=== PATIENT | female | born 1970 | race Hispanic/Latino ===

== ENCOUNTER 2021-05-24 23:30 | Inpatient (IN) | payer BC ==
[~2021-05-24 23:30] MED LIST: Iopamidol-370 76% 500 ML 1 ML ONE
[2021-05-25] MEDS ORDERED: Ondansetron PF 4 MG/2 ML Vial IVP PRN (02:34)
[2021-05-25] MEDS ORDERED: Ondansetron ODT 4 MG TAB PO PRN (02:34)
[2021-05-25] MEDS ORDERED: Acetaminophen 325 MG TAB PO PRN (02:41)
[2021-05-25] MEDS ORDERED: Dextrose 5% in Water 1,000 ML IV PRN (02:45)
[2021-05-25] MEDS ORDERED: Dextrose 50% Abboject 50 ML SYRINGE SLOW IVP PRN (02:45)
[2021-05-25] MEDS ORDERED: REMDESIVIR 200 MG in Sodium Chloride 0.9% 250 ML 210 ML IV SCH (03:00)
[2021-05-25] MEDS ORDERED: Lactated Ringer's 1,000 ML IV SCH (04:00)
[2021-05-25 04:05] LABS: #Lymphocytes 0.8 thou/uL (1.20-3.40); #Monocytes 0.3 thou/uL (0.11-0.59); #Neutrophils 7.1 thou/uL (1.40-6.50); %Eosinophils 0.1 % (0.0-10.0); %Lymphocytes 9.5 % (21.0-51.0); %Monocytes 3.4 % (0.0-10.0); Hemoglobin 11.2 g/dL (12.0-16.0); Mean Corpuscular HGB CONC 34.1 g/dL (32.0-36.0); Mean Corpuscular Hemoglobin 31.4 pg (27.0-31.0); Mean Corpuscular Volume 91.9 fL (78.0-98.0); Mean Platelet Volume 6.9 fL (7.4-10.4); Platelet Count 299 thou/uL (130-400); RBC Distribution Width 11.3 % (11.5-14.5); Red Blood Cell (RBC) Count 3.56 mill/uL (4.20-5.40); White Blood Cell (WBC) Count 8.2 thou/uL (4.8-10.8)
[2021-05-25 04:36] LABS: ALT (SGPT) 16 U/L (8-55); AST (SGOT) 28 U/L (5-34); Albumin 3.5 g/dL (3.5-5.0); Alkaline Phosphatase 51 U/L (40-110); Anion Gap 17 mmol/L (10-20); BUN (Urea Nitrogen) 27 mg/dL (9.8-20.1); Bilirubin, Total 0.4 mg/dL (0.2-1.2); Calc. Creatinine Clearance 66 mL/min (70-130); Calcium 8.2 mg/dL (7.8-10.44); Carbon Dioxide 20 mmol/L (22-29); Chloride 104 mmol/L (98-107); Globulin 3.7 g/dL (2.4-3.5); Glucose 267 mg/dL (70-105); Potassium 4.8 mmol/L (3.5-5.1); Protein, Total 7.2 g/dL (6.0-8.3); Sodium 136 mmol/L (136-145)
[2021-05-25] MEDS: Lactated Ringer's 1,000 ML IV SCH ×2 (08:55→21:37)
[2021-05-25] MEDS ORDERED: Dexamethasone 4 MG TAB ONE (08:56)
[2021-05-25] MEDS ORDERED: Benzonatate 100 MG CAP ONE ×2 (08:56→15:12)
[2021-05-25] MEDS ORDERED: Enoxaparin Sodium 40 MG/0.4 ML SYRINGE ONE (08:56)
[2021-05-25] MEDS: Benzonatate 100 MG CAP PO SCH ×3 (08:57→21:07)
[2021-05-25] MEDS: Enoxaparin Sodium 40 MG/0.4 ML SYRINGE SC SCH ×2 (08:57→21:07)
[2021-05-25] MEDS ORDERED: Dexamethasone 1 MG TAB PO SCH (09:00)
[2021-05-25] MEDS: HumaLOG 300 UNITS/3 ML VIAL SC PRN ×3 (09:08→18:48)
[2021-05-25] MEDS ORDERED: Insulin Regular 300 UNITS/3 ML VIAL ONE (09:11)
[2021-05-25] MEDS ORDERED: Calcium Carbonate 500 MG ChewTAB PO PRN (12:35)
[2021-05-25] MEDS ORDERED: Famotidine 20 MG TAB PO SCH (12:45)
[2021-05-25] MEDS ORDERED: Calcium Carbonate 500 MG ChewTAB ONE (12:55)
[2021-05-25] MEDS ORDERED: Famotidine 20 MG TAB ONE (12:55)
[2021-05-25] MEDS: Atorvastatin Calcium 40 MG TAB PO SCH (21:07)
[2021-05-25] MEDS: Gabapentin 300 MG CAP PO SCH (21:07)
[2021-05-25] MEDS: Famotidine 20 MG TAB PO SCH (21:08)
[2021-05-25 23:18] LABS: Creatinine, Urine 64.42 mg/dL (47-110)
[2021-05-26] MEDS ORDERED: REMDESIVIR 100 MG in Sodium Chloride 0.9% 250 ML 230 ML IV SCH (03:00)
[2021-05-26 03:58] LABS: #Lymphocytes 1.3 thou/uL (1.20-3.40); #Monocytes 0.9 thou/uL (0.11-0.59); #Neutrophils 9.2 thou/uL (1.40-6.50); %Basophils 0.1 % (0.0-1.0); %Eosinophils 0.2 % (0.0-10.0); %Lymphocytes 11.2 % (21.0-51.0); %Monocytes 7.8 % (0.0-10.0); %Neutrophils 80.8 % (42.0-75.0); Hemoglobin 11.2 g/dL (12.0-16.0); Mean Corpuscular HGB CONC 33.9 g/dL (32.0-36.0); Mean Corpuscular Hemoglobin 31.2 pg (27.0-31.0); Mean Platelet Volume 7.1 fL (7.4-10.4); Platelet Count 413 thou/uL (130-400); RBC Distribution Width 11.1 % (11.5-14.5); Red Blood Cell (RBC) Count 3.59 mill/uL (4.20-5.40); White Blood Cell (WBC) Count 11.4 thou/uL (4.8-10.8)
[2021-05-26 04:20] LABS: ALT (SGPT) 14 U/L (8-55); AST (SGOT) 21 U/L (5-34); Albumin 3.5 g/dL (3.5-5.0); Alkaline Phosphatase 52 U/L (40-110); Anion Gap 16 mmol/L (10-20); BUN (Urea Nitrogen) 28 mg/dL (9.8-20.1); Bilirubin, Total 0.5 mg/dL (0.2-1.2); Calc. Creatinine Clearance 93 mL/min (70-130); Calcium 8.6 mg/dL (7.8-10.44); Carbon Dioxide 21 mmol/L (22-29); Chloride 104 mmol/L (98-107); Globulin 3.7 g/dL (2.4-3.5); Glucose 363 mg/dL (70-105); Potassium 4.7 mmol/L (3.5-5.1); Protein, Total 7.2 g/dL (6.0-8.3); Sodium 136 mmol/L (136-145)
[2021-05-26] MEDS: Benzonatate 100 MG CAP PO SCH ×3 (05:57→20:44)
[2021-05-26] MEDS: HumaLOG 300 UNITS/3 ML VIAL SC PRN ×4 (05:58→21:00)
[2021-05-26] MEDS ORDERED: Lantus 1000 UNITS/10 ML VIAL SC SCH (09:00)
[2021-05-26] MEDS: Gabapentin 300 MG CAP PO SCH ×3 (09:11→20:45)
[2021-05-26] MEDS: Famotidine 20 MG TAB PO SCH ×2 (09:11→20:45)
[2021-05-26] MEDS: Enoxaparin Sodium 40 MG/0.4 ML SYRINGE SC SCH ×2 (09:11→20:42)
[2021-05-26] MEDS: Empagliflozin 25 MG TAB PO SCH (09:12)
[2021-05-26] MEDS: Zinc Sulfate 220 MG CAP PO SCH (09:13)
[2021-05-26] MEDS: Ascorbic Acid 500 mg Chewable Tablet PO SCH ×2 (09:14→20:44)
[2021-05-26] MEDS: Dexamethasone 10 MG/ML VIAL SLOW IVP SCH ×2 (09:24→20:37)
[2021-05-26] MEDS: Ivermectin 3 MG TAB PO SCH (09:24)
[2021-05-26] MEDS: Lactated Ringer's 1,000 ML IV SCH (11:54)
[2021-05-26] MEDS: Cholecalciferol 1,000 UNITS (25 MCG) TAB PO SCH (20:44)
[2021-05-26] MEDS: Atorvastatin Calcium 40 MG TAB PO SCH (20:44)
[2021-05-27 03:42] LABS: #Basophils 0.1 thou/uL (0.0-0.2); #Lymphocytes 1.2 thou/uL (1.20-3.40); #Monocytes 0.7 thou/uL (0.11-0.59); #Neutrophils 10.3 thou/uL (1.40-6.50); %Basophils 0.9 % (0.0-1.0); %Eosinophils 0.3 % (0.0-10.0); %Lymphocytes 9.6 % (21.0-51.0); %Monocytes 5.7 % (0.0-10.0); %Neutrophils 83.5 % (42.0-75.0); Hemoglobin 11.5 g/dL (12.0-16.0); Mean Corpuscular HGB CONC 33.8 g/dL (32.0-36.0); Mean Corpuscular Hemoglobin 30.8 pg (27.0-31.0); Mean Corpuscular Volume 91.2 fL (78.0-98.0); Mean Platelet Volume 6.8 fL (7.4-10.4); Platelet Count 448 thou/uL (130-400); RBC Distribution Width 11.2 % (11.5-14.5); Red Blood Cell (RBC) Count 3.73 mill/uL (4.20-5.40); White Blood Cell (WBC) Count 12.3 thou/uL (4.8-10.8)
[2021-05-27 04:02] LABS: Albumin 3.3 g/dL (3.5-5.0); Anion Gap 9 mmol/L (10-20); BUN (Urea Nitrogen) 25 mg/dL (9.8-20.1); Bilirubin, Total 0.5 mg/dL (0.2-1.2); Calc. Creatinine Clearance 117 mL/min (70-130); Calcium 8.7 mg/dL (7.8-10.44); Carbon Dioxide 28 mmol/L (22-29); Chloride 103 mmol/L (98-107); Globulin 3.6 g/dL (2.4-3.5); Glucose 265 mg/dL (70-105); Potassium 4.2 mmol/L (3.5-5.1); Protein, Total 6.9 g/dL (6.0-8.3); Sodium 136 mmol/L (136-145)
[2021-05-27 04:03] LABS: ALT (SGPT) 14 U/L (8-55); AST (SGOT) 16 U/L (5-34); Alkaline Phosphatase 51 U/L (40-110)
[2021-05-27] MEDS ORDERED: Famotidine/PF 20 mg/2ml Vial ONE (08:41)
[2021-05-27] MEDS: Ivermectin 3 MG TAB PO SCH (08:45)
[2021-05-27] MEDS: Benzonatate 100 MG CAP PO SCH ×3 (08:46→21:14)
[2021-05-27] MEDS: Albuterol 200 PUFF (6.7GM INHALER) INH PRN ×2 (08:46→17:00)
[2021-05-27] MEDS: Ascorbic Acid 500 mg Chewable Tablet PO SCH ×2 (08:46→21:13)
[2021-05-27] MEDS: Zinc Sulfate 220 MG CAP PO SCH (08:46)
[2021-05-27] MEDS: Dexamethasone 10 MG/ML VIAL SLOW IVP SCH ×2 (08:47→21:12)
[2021-05-27] MEDS: Gabapentin 300 MG CAP PO SCH ×3 (08:47→21:13)
[2021-05-27] MEDS: Empagliflozin 25 MG TAB PO SCH ×2 (08:48→19:09)
[2021-05-27] MEDS: Enoxaparin Sodium 40 MG/0.4 ML SYRINGE SC SCH ×2 (08:48→21:12)
[2021-05-27] MEDS ORDERED: Lantus 1000 UNITS/10 ML VIAL SC SCH (09:00)
[2021-05-27] MEDS ORDERED: Lisinopril 10 MG TAB PO SCH ×2 (09:00→21:00)
[2021-05-27] MEDS: HumaLOG 300 UNITS/3 ML VIAL SC PRN ×2 (13:56→16:56)
[2021-05-27] MEDS ORDERED: hydrALAZINE 20 MG/ML VIAL SLOW IVP PRN (17:05)
[2021-05-27] MEDS ORDERED: HumaLOG 300 UNITS/3 ML VIAL SC SCH ×2 (21:00→23:59)
[2021-05-27] MEDS: Atorvastatin Calcium 40 MG TAB PO SCH (21:13)
[2021-05-27] MEDS: Cholecalciferol 1,000 UNITS (25 MCG) TAB PO SCH (21:14)
[2021-05-28 04:34] LABS: ALT (SGPT) 14 U/L (8-55); AST (SGOT) 13 U/L (5-34); Albumin 3.3 g/dL (3.5-5.0); Alkaline Phosphatase 54 U/L (40-110); Anion Gap 11 mmol/L (10-20); BUN (Urea Nitrogen) 23 mg/dL (9.8-20.1); Bilirubin, Total 0.6 mg/dL (0.2-1.2); Calc. Creatinine Clearance 126 mL/min (70-130); Calcium 8.9 mg/dL (7.8-10.44); Carbon Dioxide 27 mmol/L (22-29); Chloride 101 mmol/L (98-107); Globulin 3.5 g/dL (2.4-3.5); Glucose 194 mg/dL (70-105); Protein, Total 6.8 g/dL (6.0-8.3); Sodium 135 mmol/L (136-145)
[2021-05-28 04:42] LABS: Band 2 % (5-11); Hemoglobin 11.3 g/dL (12.0-16.0); Lymphocytes 12 % (21-51); MDiff Complete? YES; Mean Corpuscular HGB CONC 34.9 g/dL (32.0-36.0); Mean Corpuscular Hemoglobin 31.5 pg (27.0-31.0); Mean Corpuscular Volume 90.1 fL (78.0-98.0); Mean Platelet Volume 6.9 fL (7.4-10.4); Monocytes 5 % (0-10); Myelocyte 2 % (0-0); Neutrophil 79 % (42-75); Platelet Count 467 thou/uL (130-400); Platelet Morphology Comment Appears Increased; Red Blood Cell (RBC) Count 3.59 mill/uL (4.20-5.40); White Blood Cell (WBC) Count 12.6 thou/uL (4.8-10.8)
[2021-05-28] MEDS: HumaLOG 300 UNITS/3 ML VIAL SC PRN ×3 (05:40→20:59)
[2021-05-28] MEDS: Enoxaparin Sodium 40 MG/0.4 ML SYRINGE SC SCH ×2 (07:52→10:00)
[2021-05-28] MEDS: Zinc Sulfate 220 MG CAP PO SCH (07:53)
[2021-05-28] MEDS: Ascorbic Acid 500 mg Chewable Tablet PO SCH ×2 (07:53→20:53)
[2021-05-28] MEDS: Gabapentin 300 MG CAP PO SCH ×3 (07:53→20:54)
[2021-05-28] MEDS: Benzonatate 100 MG CAP PO SCH ×3 (07:53→20:55)
[2021-05-28] MEDS: Lantus 1000 UNITS/10 ML VIAL SC SCH (07:55)
[2021-05-28] MEDS: HumaLOG 300 UNITS/3 ML VIAL SC SCH ×3 (07:55→20:58)
[2021-05-28] MEDS: Ivermectin 3 MG TAB PO SCH (07:56)
[2021-05-28] MEDS: Dexamethasone 10 MG/ML VIAL SLOW IVP SCH ×2 (07:56→20:53)
[2021-05-28] MEDS: Cholecalciferol 1,000 UNITS (25 MCG) TAB PO SCH (20:53)
[2021-05-28] MEDS: Atorvastatin Calcium 40 MG TAB PO SCH (20:54)
[2021-05-28] MEDS: Lisinopril 20 MG TAB PO SCH (20:55)
[2021-05-28] MEDS ORDERED: HumaLOG 300 UNITS/3 ML VIAL SC SCH (21:00)
[2021-05-28] MEDS: guaiFENesin 200 MG TAB PO PRN (21:02)
[2021-05-29] MEDS: guaiFENesin 200 MG TAB PO PRN (04:04)
[2021-05-29 04:19] LABS: ALT (SGPT) 18 U/L (8-55); AST (SGOT) 20 U/L (5-34); Albumin 3.3 g/dL (3.5-5.0); Alkaline Phosphatase 50 U/L (40-110); Anion Gap 11 mmol/L (10-20); BUN (Urea Nitrogen) 23 mg/dL (9.8-20.1); Bilirubin, Total 0.6 mg/dL (0.2-1.2); CRP (Inflammatory) 1.37 mg/dL (= or < 0.5); Calc. Creatinine Clearance 127 mL/min (70-130); Carbon Dioxide 29 mmol/L (22-29); Chloride 101 mmol/L (98-107); Globulin 3.6 g/dL (2.4-3.5); Glucose 128 mg/dL (70-105); Potassium 3.9 mmol/L (3.5-5.1); Protein, Total 6.9 g/dL (6.0-8.3); Sodium 137 mmol/L (136-145)
[2021-05-29 04:20] LABS: Band 7 % (5-11); Lymphocytes 3 % (21-51); MDiff Complete? YES; Mean Corpuscular HGB CONC 33.9 g/dL (32.0-36.0); Mean Corpuscular Hemoglobin 30.6 pg (27.0-31.0); Mean Corpuscular Volume 90.2 fL (78.0-98.0); Mean Platelet Volume 6.8 fL (7.4-10.4); Monocytes 1 % (0-10); Neutrophil 89 % (42-75); Platelet Count 488 thou/uL (130-400); Platelet Morphology Comment Appears Increased; RBC Morphology Normal; Red Blood Cell (RBC) Count 3.93 mill/uL (4.20-5.40); White Blood Cell (WBC) Count 16.7 thou/uL (4.8-10.8)
[2021-05-29] MEDS: Ascorbic Acid 500 mg Chewable Tablet PO SCH ×2 (08:01→20:49)
[2021-05-29] MEDS: Gabapentin 300 MG CAP PO SCH ×3 (08:01→20:47)
[2021-05-29] MEDS: Dexamethasone 10 MG/ML VIAL SLOW IVP SCH ×2 (08:01→20:46)
[2021-05-29] MEDS: Benzonatate 100 MG CAP PO SCH ×3 (08:01→20:49)
[2021-05-29] MEDS: Zinc Sulfate 220 MG CAP PO SCH (08:01)
[2021-05-29] MEDS: Ivermectin 3 MG TAB PO SCH (08:01)
[2021-05-29] MEDS: HumaLOG 300 UNITS/3 ML VIAL SC SCH ×3 (08:02→20:52)
[2021-05-29] MEDS: Enoxaparin Sodium 40 MG/0.4 ML SYRINGE SC SCH (08:02)
[2021-05-29] MEDS: Lantus 1000 UNITS/10 ML VIAL SC SCH (08:03)
[2021-05-29 08:31] LABS: Base Excess (BEa) 0.5 mEq/L (-2.0 to +3.0); CO2 Tension 34.7 mmHg (35.0-45.0); Calcium, Ionized (arterial) 1.14 mmol/L (1.12-1.30); Carboxyhemoglobin (COHb) 0.3 gm% (0.0-3.0); Hemoglobin (Hb) 12.7 g/dL (12.0-16.0); Potassium - ABG Lab 4.02 mmol/L (3.70-5.30); pH, Arterial 7.46 (7.35-7.45)
[2021-05-29 08:35] LABS: O2 Tension (PaO2), arterial 45.7 mmHg (80.0-100.0)
[2021-05-29 08:36] LABS: ALV-art Gradient 481.325 mmHg (0-20); Puncture Site RRA
[2021-05-29] MEDS ORDERED: Lantus 1000 UNITS/10 ML VIAL SC SCH (09:00)
[2021-05-29] MEDS: HumaLOG 300 UNITS/3 ML VIAL SC PRN ×2 (11:38→17:00)
[2021-05-29] MEDS: Atorvastatin Calcium 40 MG TAB PO SCH (20:47)
[2021-05-29] MEDS: Cholecalciferol 1,000 UNITS (25 MCG) TAB PO SCH (20:48)
[2021-05-29] MEDS: Lisinopril 20 MG TAB PO SCH (20:48)
[2021-05-30 05:33] LABS: ALT (SGPT) 22 U/L (8-55); AST (SGOT) 15 U/L (5-34); Albumin 3.2 g/dL (3.5-5.0); Alkaline Phosphatase 49 U/L (40-110); Anion Gap 10 mmol/L (10-20); BUN (Urea Nitrogen) 19 mg/dL (9.8-20.1); Bilirubin, Total 0.6 mg/dL (0.2-1.2); CRP (Inflammatory) 0.92 mg/dL (= or < 0.5); Calc. Creatinine Clearance 115 mL/min (70-130); Calcium 8.8 mg/dL (7.8-10.44); Carbon Dioxide 29 mmol/L (22-29); Chloride 101 mmol/L (98-107); Globulin 3.2 g/dL (2.4-3.5); Glucose 198 mg/dL (70-105); Potassium 4.2 mmol/L (3.5-5.1); Protein, Total 6.4 g/dL (6.0-8.3); Sodium 136 mmol/L (136-145)
[2021-05-30] MEDS: HumaLOG 300 UNITS/3 ML VIAL SC PRN ×3 (05:59→17:01)
[2021-05-30 07:23] LABS: #Lymphocytes 1.4 thou/uL (1.20-3.40); #Monocytes 0.7 thou/uL (0.11-0.59); #Neutrophils 12.8 thou/uL (1.40-6.50); %Basophils 0.2 % (0.0-1.0); %Eosinophils 0.2 % (0.0-10.0); %Lymphocytes 9.5 % (21.0-51.0); %Monocytes 4.5 % (0.0-10.0); %Neutrophils 85.7 % (42.0-75.0); Hemoglobin 12.3 g/dL (12.0-16.0); Mean Corpuscular HGB CONC 33.8 g/dL (32.0-36.0); Mean Corpuscular Hemoglobin 30.9 pg (27.0-31.0); Mean Corpuscular Volume 91.3 fL (78.0-98.0); Mean Platelet Volume 6.8 fL (7.4-10.4); Platelet Count 466 thou/uL (130-400); Red Blood Cell (RBC) Count 3.98 mill/uL (4.20-5.40)
[2021-05-30] MEDS ORDERED: Lantus 1000 UNITS/10 ML VIAL SC SCH ×2 (09:00→21:00)
[2021-05-30] MEDS: Gabapentin 300 MG CAP PO SCH ×3 (09:45→21:30)
[2021-05-30] MEDS: Benzonatate 100 MG CAP PO SCH ×3 (09:45→21:30)
[2021-05-30] MEDS: Zinc Sulfate 220 MG CAP PO SCH (09:45)
[2021-05-30] MEDS: Ascorbic Acid 500 mg Chewable Tablet PO SCH ×2 (09:45→21:30)
[2021-05-30] MEDS: Enoxaparin Sodium 40 MG/0.4 ML SYRINGE SC SCH ×2 (09:46→21:30)
[2021-05-30] MEDS: Dexamethasone 10 MG/ML VIAL SLOW IVP SCH ×2 (09:46→21:30)
[2021-05-30] MEDS: HumaLOG 300 UNITS/3 ML VIAL SC SCH ×3 (09:47→21:30)
[2021-05-30] MEDS: Cholecalciferol 1,000 UNITS (25 MCG) TAB PO SCH (21:30)
[2021-05-30] MEDS: Atorvastatin Calcium 40 MG TAB PO SCH (21:30)
[2021-05-30] MEDS: Lisinopril 20 MG TAB PO SCH (21:30)
[2021-05-31 03:40] LABS: #Basophils 0.1 thou/uL (0.0-0.2); #Lymphocytes 1.2 thou/uL (1.20-3.40); #Monocytes 0.6 thou/uL (0.11-0.59); #Neutrophils 13.6 thou/uL (1.40-6.50); %Basophils 0.3 % (0.0-1.0); %Eosinophils 0.2 % (0.0-10.0); %Lymphocytes 7.7 % (21.0-51.0); %Monocytes 4.2 % (0.0-10.0); %Neutrophils 87.6 % (42.0-75.0); Hemoglobin 11.8 g/dL (12.0-16.0); Mean Corpuscular HGB CONC 34.5 g/dL (32.0-36.0); Mean Corpuscular Hemoglobin 31.2 pg (27.0-31.0); Mean Corpuscular Volume 90.4 fL (78.0-98.0); Mean Platelet Volume 7.1 fL (7.4-10.4); Platelet Count 418 thou/uL (130-400); Red Blood Cell (RBC) Count 3.77 mill/uL (4.20-5.40); White Blood Cell (WBC) Count 15.5 thou/uL (4.8-10.8)
[2021-05-31 04:01] LABS: ALT (SGPT) 27 U/L (8-55); AST (SGOT) 15 U/L (5-34); Albumin 2.9 g/dL (3.5-5.0); Alkaline Phosphatase 44 U/L (40-110); Anion Gap 9 mmol/L (10-20); BUN (Urea Nitrogen) 20 mg/dL (9.8-20.1); Bilirubin, Total 0.4 mg/dL (0.2-1.2); CRP (Inflammatory) 0.58 mg/dL (= or < 0.5); Calc. Creatinine Clearance 130 mL/min (70-130); Calcium 8.8 mg/dL (7.8-10.44); Carbon Dioxide 29 mmol/L (22-29); Chloride 101 mmol/L (98-107); Globulin 3.1 g/dL (2.4-3.5); Glucose 155 mg/dL (70-105); Sodium 135 mmol/L (136-145)
[2021-05-31] MEDS: Zinc Sulfate 220 MG CAP PO SCH (08:42)
[2021-05-31] MEDS: Benzonatate 100 MG CAP PO SCH ×3 (08:42→20:41)
[2021-05-31] MEDS: Ascorbic Acid 500 mg Chewable Tablet PO SCH ×2 (08:42→20:42)
[2021-05-31] MEDS: Enoxaparin Sodium 40 MG/0.4 ML SYRINGE SC SCH ×2 (08:42→20:38)
[2021-05-31] MEDS: Gabapentin 300 MG CAP PO SCH ×3 (08:43→20:42)
[2021-05-31] MEDS: Dexamethasone 10 MG/ML VIAL SLOW IVP SCH ×2 (08:43→20:43)
[2021-05-31] MEDS: HumaLOG 300 UNITS/3 ML VIAL SC SCH ×2 (08:43→15:37)
[2021-05-31] MEDS: Lantus 1000 UNITS/10 ML VIAL SC SCH ×2 (08:45→20:45)
[2021-05-31] MEDS: HumaLOG 300 UNITS/3 ML VIAL SC PRN ×2 (11:31→17:29)
[2021-05-31] MEDS: Lisinopril 20 MG TAB PO SCH (20:42)
[2021-05-31] MEDS: Cholecalciferol 1,000 UNITS (25 MCG) TAB PO SCH (20:42)
[2021-05-31] MEDS: Atorvastatin Calcium 40 MG TAB PO SCH (20:42)
[2021-06-01 04:08] LABS: #Lymphocytes 1.2 thou/uL (1.20-3.40); #Monocytes 0.5 thou/uL (0.11-0.59); %Eosinophils 0.3 % (0.0-10.0); %Lymphocytes 7.6 % (21.0-51.0); %Monocytes 3.4 % (0.0-10.0); %Neutrophils 88.7 % (42.0-75.0); Hemoglobin 11.3 g/dL (12.0-16.0); Mean Corpuscular HGB CONC 33.6 g/dL (32.0-36.0); Mean Corpuscular Hemoglobin 30.9 pg (27.0-31.0); Mean Corpuscular Volume 92.1 fL (78.0-98.0); Mean Platelet Volume 7.7 fL (7.4-10.4); Platelet Count 382 thou/uL (130-400); RBC Distribution Width 11.3 % (11.5-14.5); Red Blood Cell (RBC) Count 3.66 mill/uL (4.20-5.40); White Blood Cell (WBC) Count 15.8 thou/uL (4.8-10.8)
[2021-06-01 04:25] LABS: ALT (SGPT) 25 U/L (8-55); AST (SGOT) 13 U/L (5-34); Albumin 2.8 g/dL (3.5-5.0); Alkaline Phosphatase 43 U/L (40-110); Anion Gap 10 mmol/L (10-20); BUN (Urea Nitrogen) 21 mg/dL (9.8-20.1); Bilirubin, Total 0.5 mg/dL (0.2-1.2); CRP (Inflammatory) Less than 0.50 mg/dL (= or < 0.5); Calc. Creatinine Clearance 131 mL/min (70-130); Calcium 8.6 mg/dL (7.8-10.44); Carbon Dioxide 29 mmol/L (22-29); Chloride 101 mmol/L (98-107); Globulin 2.7 g/dL (2.4-3.5); Glucose 160 mg/dL (70-105); Potassium 4.1 mmol/L (3.5-5.1); Protein, Total 5.5 g/dL (6.0-8.3); Sodium 136 mmol/L (136-145)
[2021-06-01] MEDS: Ascorbic Acid 500 mg Chewable Tablet PO SCH ×2 (07:57→20:10)
[2021-06-01] MEDS: Gabapentin 300 MG CAP PO SCH ×3 (07:57→20:09)
[2021-06-01] MEDS: Dexamethasone 10 MG/ML VIAL SLOW IVP SCH ×2 (07:57→20:15)
[2021-06-01] MEDS: Benzonatate 100 MG CAP PO SCH ×3 (07:57→20:10)
[2021-06-01] MEDS: HumaLOG 300 UNITS/3 ML VIAL SC SCH ×3 (07:58→17:12)
[2021-06-01] MEDS: Enoxaparin Sodium 40 MG/0.4 ML SYRINGE SC SCH ×2 (07:59→20:08)
[2021-06-01] MEDS: Lantus 1000 UNITS/10 ML VIAL SC SCH ×2 (08:00→20:11)
[2021-06-01] MEDS: Zinc Sulfate 220 MG CAP PO SCH (08:01)
[2021-06-01] MEDS: HumaLOG 300 UNITS/3 ML VIAL SC PRN ×3 (10:55→20:36)
[2021-06-01] MEDS: Lisinopril 20 MG TAB PO SCH (20:09)
[2021-06-01] MEDS: Atorvastatin Calcium 40 MG TAB PO SCH (20:10)
[2021-06-01] MEDS: Cholecalciferol 1,000 UNITS (25 MCG) TAB PO SCH (20:10)
[2021-06-02 04:35] LABS: Band 2 % (5-11); Hemoglobin 11.4 g/dL (12.0-16.0); Hypochromia SLIGHT = 6-15 cells (100X) (0-5/hpf); Lymphocytes 13 % (21-51); MDiff Complete? YES; Mean Corpuscular HGB CONC 33.7 g/dL (32.0-36.0); Mean Corpuscular Hemoglobin 30.6 pg (27.0-31.0); Monocytes 9 % (0-10); Neutrophil 76 % (42-75); Platelet Count 378 thou/uL (130-400); Platelet Morphology Comment Appears Adequate; RBC Distribution Width 11.5 % (11.5-14.5); Red Blood Cell (RBC) Count 3.72 mill/uL (4.20-5.40)
[2021-06-02 04:42] LABS: Carbon Dioxide 27 mmol/L (22-29); Chloride 103 mmol/L (98-107); Sodium 137 mmol/L (136-145)
[2021-06-02 04:43] LABS: ALT (SGPT) 33 U/L (8-55); AST (SGOT) 17 U/L (5-34); Albumin 2.9 g/dL (3.5-5.0); Alkaline Phosphatase 42 U/L (40-110); Anion Gap 11 mmol/L (10-20); BUN (Urea Nitrogen) 20 mg/dL (9.8-20.1); Bilirubin, Total 0.5 mg/dL (0.2-1.2); CRP (Inflammatory) Less than 0.50 mg/dL (= or < 0.5); Calc. Creatinine Clearance 144 mL/min (70-130); Calcium 9.1 mg/dL (7.8-10.44); Globulin 2.8 g/dL (2.4-3.5); Glucose 67 mg/dL (70-105); Protein, Total 5.7 g/dL (6.0-8.3)
[2021-06-02] MEDS: HumaLOG 300 UNITS/3 ML VIAL SC SCH ×3 (08:44→16:30)
[2021-06-02] MEDS: Dexamethasone 10 MG/ML VIAL SLOW IVP SCH ×2 (08:45→21:51)
[2021-06-02] MEDS: Ascorbic Acid 500 mg Chewable Tablet PO SCH ×2 (08:45→21:45)
[2021-06-02] MEDS: Benzonatate 100 MG CAP PO SCH ×3 (08:45→21:45)
[2021-06-02] MEDS: Gabapentin 300 MG CAP PO SCH ×3 (08:46→21:45)
[2021-06-02] MEDS: Zinc Sulfate 220 MG CAP PO SCH (08:46)
[2021-06-02] MEDS: Enoxaparin Sodium 40 MG/0.4 ML SYRINGE SC SCH ×2 (08:46→21:43)
[2021-06-02] MEDS: HumaLOG 300 UNITS/3 ML VIAL SC PRN ×3 (11:46→21:46)
[2021-06-02] MEDS ORDERED: Lantus 1000 UNITS/10 ML VIAL SC SCH (21:00)
[2021-06-02] MEDS: Atorvastatin Calcium 40 MG TAB PO SCH (21:44)
[2021-06-02] MEDS: Lisinopril 20 MG TAB PO SCH (21:44)
[2021-06-02] MEDS: Cholecalciferol 1,000 UNITS (25 MCG) TAB PO SCH (21:44)
[2021-06-03 04:20] LABS: ALT (SGPT) 33 U/L (8-55); AST (SGOT) 14 U/L (5-34); Albumin 2.8 g/dL (3.5-5.0); Alkaline Phosphatase 42 U/L (40-110); Anion Gap 9 mmol/L (10-20); BUN (Urea Nitrogen) 19 mg/dL (9.8-20.1); Bilirubin, Total 0.5 mg/dL (0.2-1.2); Calc. Creatinine Clearance 146 mL/min (70-130); Calcium 8.9 mg/dL (7.8-10.44); Carbon Dioxide 30 mmol/L (22-29); Chloride 102 mmol/L (98-107); Globulin 2.8 g/dL (2.4-3.5); Glucose 72 mg/dL (70-105); Protein, Total 5.6 g/dL (6.0-8.3); Sodium 137 mmol/L (136-145)
[2021-06-03 04:29] LABS: Band 5 % (5-11); Lymphocytes 8 % (21-51); MDiff Complete? YES; Mean Corpuscular Hemoglobin 30.9 pg (27.0-31.0); Mean Corpuscular Volume 91.1 fL (78.0-98.0); Mean Platelet Volume 7.8 fL (7.4-10.4); Metamyelocyte 2 % (0-0); Monocytes 5 % (0-10); Myelocyte 1 % (0-0); Neutrophil 79 % (42-75); Platelet Count 395 thou/uL (130-400); Platelet Morphology Comment Appears Adequate; RBC Distribution Width 11.5 % (11.5-14.5); RBC Morphology Normal; Red Blood Cell (RBC) Count 3.56 mill/uL (4.20-5.40); White Blood Cell (WBC) Count 14.6 thou/uL (4.8-10.8)
[2021-06-03] MEDS: HumaLOG 300 UNITS/3 ML VIAL SC SCH ×3 (10:08→17:31)
[2021-06-03] MEDS: Ascorbic Acid 500 mg Chewable Tablet PO SCH ×2 (10:09→20:26)
[2021-06-03] MEDS: Benzonatate 100 MG CAP PO SCH ×3 (10:09→20:26)
[2021-06-03] MEDS: Gabapentin 300 MG CAP PO SCH ×3 (10:10→20:26)
[2021-06-03] MEDS: Dexamethasone 10 MG/ML VIAL SLOW IVP SCH ×2 (10:10→20:27)
[2021-06-03] MEDS: Enoxaparin Sodium 40 MG/0.4 ML SYRINGE SC SCH ×2 (10:10→20:25)
[2021-06-03] MEDS: Zinc Sulfate 220 MG CAP PO SCH (10:11)
[2021-06-03] MEDS: Lantus 1000 UNITS/10 ML VIAL SC SCH ×2 (10:11→20:27)
[2021-06-03] MEDS: Polyethylene Glycol 3350 17 GM Packet PO PRN (10:11)
[2021-06-03] MEDS: HumaLOG 300 UNITS/3 ML VIAL SC PRN ×2 (13:12→17:32)
[2021-06-03] MEDS: Atorvastatin Calcium 40 MG TAB PO SCH (20:26)
[2021-06-03] MEDS: Lisinopril 20 MG TAB PO SCH (20:26)
[2021-06-03] MEDS: Cholecalciferol 1,000 UNITS (25 MCG) TAB PO SCH (20:26)
[2021-06-04 04:33] LABS: ALT (SGPT) 32 U/L (8-55); AST (SGOT) 11 U/L (5-34); Alkaline Phosphatase 44 U/L (40-110); Anion Gap 12 mmol/L (10-20); BUN (Urea Nitrogen) 15 mg/dL (9.8-20.1); Bilirubin, Total 0.4 mg/dL (0.2-1.2); Calc. Creatinine Clearance 146 mL/min (70-130); Carbon Dioxide 29 mmol/L (22-29); Chloride 101 mmol/L (98-107); Globulin 2.7 g/dL (2.4-3.5); Glucose 98 mg/dL (70-105); Protein, Total 5.7 g/dL (6.0-8.3); Sodium 138 mmol/L (136-145)
[2021-06-04 05:15] LABS: Hemoglobin 11.3 g/dL (12.0-16.0); Mean Corpuscular Hemoglobin 30.2 pg (27.0-31.0); Mean Corpuscular Volume 91.4 fL (78.0-98.0); Platelet Count 374 thou/uL (130-400); RBC Distribution Width 11.8 % (11.5-14.5); Red Blood Cell (RBC) Count 3.74 mill/uL (4.20-5.40); White Blood Cell (WBC) Count 15.3 thou/uL (4.8-10.8)
[2021-06-04 05:16] LABS: Band 2 % (5-11); Lymphocytes 10 % (21-51); MDiff Complete? YES; Monocytes 5 % (0-10); Neutrophil 83 % (42-75)
[2021-06-04] MEDS: Ascorbic Acid 500 mg Chewable Tablet PO SCH ×2 (09:45→20:54)
[2021-06-04] MEDS: HumaLOG 300 UNITS/3 ML VIAL SC SCH ×3 (09:45→18:27)
[2021-06-04] MEDS: Benzonatate 100 MG CAP PO SCH ×3 (09:46→20:57)
[2021-06-04] MEDS: Gabapentin 300 MG CAP PO SCH ×3 (09:47→20:56)
[2021-06-04] MEDS: Enoxaparin Sodium 40 MG/0.4 ML SYRINGE SC SCH ×2 (09:47→20:57)
[2021-06-04] MEDS: Lantus 1000 UNITS/10 ML VIAL SC SCH ×2 (09:47→21:05)
[2021-06-04] MEDS: Zinc Sulfate 220 MG CAP PO SCH (09:48)
[2021-06-04] MEDS: Dexamethasone 10 MG/ML VIAL SLOW IVP SCH ×2 (10:21→21:11)
[2021-06-04] MEDS: Lisinopril 20 MG TAB PO SCH (20:53)
[2021-06-04] MEDS: Cholecalciferol 1,000 UNITS (25 MCG) TAB PO SCH (20:54)
[2021-06-04] MEDS: Atorvastatin Calcium 40 MG TAB PO SCH (20:56)
[2021-06-05 04:23] LABS: #Eosinphils 0.1 thou/uL (0.0-0.7); #Lymphocytes 0.9 thou/uL (1.20-3.40); #Monocytes 0.4 thou/uL (0.11-0.59); #Neutrophils 13.2 thou/uL (1.40-6.50); %Basophils 0.1 % (0.0-1.0); %Eosinophils 0.4 % (0.0-10.0); %Lymphocytes 5.8 % (21.0-51.0); %Monocytes 2.8 % (0.0-10.0); %Neutrophils 90.9 % (42.0-75.0); Hemoglobin 11.6 g/dL (12.0-16.0); Mean Corpuscular HGB CONC 33.6 g/dL (32.0-36.0); Mean Corpuscular Hemoglobin 30.6 pg (27.0-31.0); Mean Corpuscular Volume 91.2 fL (78.0-98.0); Mean Platelet Volume 8.2 fL (7.4-10.4); Platelet Count 380 thou/uL (130-400); RBC Distribution Width 11.7 % (11.5-14.5); Red Blood Cell (RBC) Count 3.79 mill/uL (4.20-5.40); White Blood Cell (WBC) Count 14.5 thou/uL (4.8-10.8)
[2021-06-05 04:47] LABS: ALT (SGPT) 31 U/L (8-55); AST (SGOT) 12 U/L (5-34); Alkaline Phosphatase 43 U/L (40-110); Anion Gap 12 mmol/L (10-20); BUN (Urea Nitrogen) 16 mg/dL (9.8-20.1); Bilirubin, Total 0.5 mg/dL (0.2-1.2); Calc. Creatinine Clearance 125 mL/min (70-130); Calcium 9.1 mg/dL (7.8-10.44); Carbon Dioxide 27 mmol/L (22-29); Chloride 99 mmol/L (98-107); Globulin 2.8 g/dL (2.4-3.5); Glucose 173 mg/dL (70-105); Potassium 4.3 mmol/L (3.5-5.1); Protein, Total 5.8 g/dL (6.0-8.3); Sodium 134 mmol/L (136-145)
[2021-06-05] MEDS: Ascorbic Acid 500 mg Chewable Tablet PO SCH ×2 (09:25→21:27)
[2021-06-05] MEDS: Enoxaparin Sodium 40 MG/0.4 ML SYRINGE SC SCH ×2 (09:25→21:33)
[2021-06-05] MEDS: HumaLOG 300 UNITS/3 ML VIAL SC SCH ×3 (09:25→16:54)
[2021-06-05] MEDS: Benzonatate 100 MG CAP PO SCH ×3 (09:25→21:28)
[2021-06-05] MEDS: Zinc Sulfate 220 MG CAP PO SCH (09:26)
[2021-06-05] MEDS: Lantus 1000 UNITS/10 ML VIAL SC SCH ×2 (09:26→22:46)
[2021-06-05] MEDS: Gabapentin 300 MG CAP PO SCH ×3 (09:26→21:33)
[2021-06-05] MEDS: Dexamethasone 10 MG/ML VIAL SLOW IVP SCH (11:31)
[2021-06-05] MEDS: HumaLOG 300 UNITS/3 ML VIAL SC PRN ×2 (11:32→16:54)
[2021-06-05] MEDS: Atorvastatin Calcium 40 MG TAB PO SCH (21:27)
[2021-06-05] MEDS: Cholecalciferol 1,000 UNITS (25 MCG) TAB PO SCH (21:28)
[2021-06-05] MEDS: Lisinopril 20 MG TAB PO SCH (21:29)
[2021-06-06 06:17] LABS: Hemoglobin 11.2 g/dL (12.0-16.0); Mean Corpuscular HGB CONC 33.1 g/dL (32.0-36.0); Mean Corpuscular Hemoglobin 30.2 pg (27.0-31.0); Mean Corpuscular Volume 91.4 fL (78.0-98.0); Platelet Count 347 thou/uL (130-400); Red Blood Cell (RBC) Count 3.69 mill/uL (4.20-5.40); White Blood Cell (WBC) Count 16.2 thou/uL (4.8-10.8)
[2021-06-06 06:28] LABS: ALT (SGPT) 40 U/L (8-55); AST (SGOT) 13 U/L (5-34); Alkaline Phosphatase 45 U/L (40-110); Anion Gap 11 mmol/L (10-20); BUN (Urea Nitrogen) 22 mg/dL (9.8-20.1); Bilirubin, Total 0.5 mg/dL (0.2-1.2); Calc. Creatinine Clearance 132 mL/min (70-130); Calcium 8.8 mg/dL (7.8-10.44); Carbon Dioxide 28 mmol/L (22-29); Chloride 99 mmol/L (98-107); Globulin 2.7 g/dL (2.4-3.5); Glucose 173 mg/dL (70-105); Potassium 4.2 mmol/L (3.5-5.1); Protein, Total 5.7 g/dL (6.0-8.3); Sodium 134 mmol/L (136-145)
[2021-06-06 07:04] LABS: Band 2 % (5-11); Lymphocytes 6 % (21-51); MDiff Complete? YES; Monocytes 9 % (0-10); Neutrophil 83 % (42-75)
[2021-06-06] MEDS: Zinc Sulfate 220 MG CAP PO SCH (08:18)
[2021-06-06] MEDS: Enoxaparin Sodium 40 MG/0.4 ML SYRINGE SC SCH ×2 (08:18→20:03)
[2021-06-06] MEDS: Ascorbic Acid 500 mg Chewable Tablet PO SCH ×2 (08:18→20:02)
[2021-06-06] MEDS: Benzonatate 100 MG CAP PO SCH ×3 (08:19→20:02)
[2021-06-06] MEDS: Gabapentin 300 MG CAP PO SCH ×3 (08:19→20:03)
[2021-06-06] MEDS: Dexamethasone 10 MG/ML VIAL SLOW IVP SCH (08:20)
[2021-06-06] MEDS: HumaLOG 300 UNITS/3 ML VIAL SC SCH ×3 (08:22→17:21)
[2021-06-06] MEDS: Lantus 1000 UNITS/10 ML VIAL SC SCH ×2 (08:28→20:03)
[2021-06-06] MEDS: HumaLOG 300 UNITS/3 ML VIAL SC PRN (12:12)
[2021-06-06] MEDS: Cholecalciferol 1,000 UNITS (25 MCG) TAB PO SCH (20:02)
[2021-06-06] MEDS: Atorvastatin Calcium 40 MG TAB PO SCH (20:02)
[2021-06-06] MEDS: Lisinopril 20 MG TAB PO SCH (20:04)
[2021-06-07 06:56] LABS: #Lymphocytes 1.2 thou/uL (1.20-3.40); #Monocytes 1.1 thou/uL (0.11-0.59); #Neutrophils 13.1 thou/uL (1.40-6.50); %Basophils 0.1 % (0.0-1.0); %Eosinophils 0.3 % (0.0-10.0); %Lymphocytes 7.8 % (21.0-51.0); %Monocytes 6.8 % (0.0-10.0); Hemoglobin 11.2 g/dL (12.0-16.0); Mean Corpuscular HGB CONC 33.2 g/dL (32.0-36.0); Mean Corpuscular Hemoglobin 30.4 pg (27.0-31.0); Mean Corpuscular Volume 91.7 fL (78.0-98.0); Mean Platelet Volume 8.1 fL (7.4-10.4); Platelet Count 353 thou/uL (130-400); RBC Distribution Width 12.4 % (11.5-14.5); Red Blood Cell (RBC) Count 3.69 mill/uL (4.20-5.40); White Blood Cell (WBC) Count 15.4 thou/uL (4.8-10.8)
[2021-06-07 07:10] LABS: Anion Gap 10 mmol/L (10-20); BUN (Urea Nitrogen) 23 mg/dL (9.8-20.1); CRP (Inflammatory) Less than 0.50 mg/dL (= or < 0.5); Calc. Creatinine Clearance 136 mL/min (70-130); Calcium 8.6 mg/dL (7.8-10.44); Carbon Dioxide 26 mmol/L (22-29); Chloride 101 mmol/L (98-107); Glucose 138 mg/dL (70-105); Potassium 4.2 mmol/L (3.5-5.1); Sodium 133 mmol/L (136-145)
[2021-06-07] MEDS: Gabapentin 300 MG CAP PO SCH ×3 (08:07→20:44)
[2021-06-07] MEDS: Benzonatate 100 MG CAP PO SCH ×3 (08:07→20:43)
[2021-06-07] MEDS: Ascorbic Acid 500 mg Chewable Tablet PO SCH ×2 (08:07→20:43)
[2021-06-07] MEDS: Lantus 1000 UNITS/10 ML VIAL SC SCH ×2 (08:09→20:46)
[2021-06-07] MEDS: Zinc Sulfate 220 MG CAP PO SCH (08:09)
[2021-06-07] MEDS: Enoxaparin Sodium 40 MG/0.4 ML SYRINGE SC SCH ×2 (08:10→20:44)
[2021-06-07] MEDS: HumaLOG 300 UNITS/3 ML VIAL SC SCH ×3 (08:10→16:40)
[2021-06-07] MEDS: Polyethylene Glycol 3350 17 GM Packet PO PRN (08:23)
[2021-06-07] MEDS: Dexamethasone 10 MG/ML VIAL SLOW IVP SCH (10:27)
[2021-06-07] MEDS: guaiFENesin 200 MG TAB PO PRN (13:17)
[2021-06-07] MEDS: HumaLOG 300 UNITS/3 ML VIAL SC PRN (16:42)
[2021-06-07] MEDS: Cholecalciferol 1,000 UNITS (25 MCG) TAB PO SCH (20:43)
[2021-06-07] MEDS: Atorvastatin Calcium 40 MG TAB PO SCH (20:43)
[2021-06-07] MEDS: Lisinopril 20 MG TAB PO SCH (20:45)
[2021-06-08] MEDS: Ascorbic Acid 500 mg Chewable Tablet PO SCH ×2 (09:07→20:15)
[2021-06-08] MEDS: Polyethylene Glycol 3350 17 GM Packet PO PRN (09:07)
[2021-06-08] MEDS: Gabapentin 300 MG CAP PO SCH ×3 (09:08→20:19)
[2021-06-08] MEDS: Benzonatate 100 MG CAP PO SCH ×3 (09:08→20:17)
[2021-06-08] MEDS: Dexamethasone 10 MG/ML VIAL SLOW IVP SCH (09:08)
[2021-06-08] MEDS: Enoxaparin Sodium 40 MG/0.4 ML SYRINGE SC SCH (09:08)
[2021-06-08] MEDS: Zinc Sulfate 220 MG CAP PO SCH (09:08)
[2021-06-08] MEDS: HumaLOG 300 UNITS/3 ML VIAL SC SCH ×3 (09:09→17:48)
[2021-06-08] MEDS: Lantus 1000 UNITS/10 ML VIAL SC SCH ×2 (09:11→20:20)
[2021-06-08] MEDS: guaiFENesin 200 MG TAB PO PRN (09:12)
[2021-06-08] MEDS: HumaLOG 300 UNITS/3 ML VIAL SC PRN ×2 (13:12→17:49)
[2021-06-08] MEDS: Atorvastatin Calcium 40 MG TAB PO SCH (20:16)
[2021-06-08] MEDS: Cholecalciferol 1,000 UNITS (25 MCG) TAB PO SCH (20:17)
[2021-06-08] MEDS: Lisinopril 20 MG TAB PO SCH (20:19)
[2021-06-09] MEDS: Polyethylene Glycol 3350 17 GM Packet PO PRN (08:34)
[2021-06-09] MEDS: Ascorbic Acid 500 mg Chewable Tablet PO SCH ×2 (08:35→20:27)
[2021-06-09] MEDS: Zinc Sulfate 220 MG CAP PO SCH (08:35)
[2021-06-09] MEDS: Enoxaparin Sodium 40 MG/0.4 ML SYRINGE SC SCH (08:35)
[2021-06-09] MEDS: Benzonatate 100 MG CAP PO SCH ×3 (08:35→20:28)
[2021-06-09] MEDS: Gabapentin 300 MG CAP PO SCH ×3 (08:35→20:30)
[2021-06-09] MEDS: HumaLOG 300 UNITS/3 ML VIAL SC SCH ×3 (08:36→18:08)
[2021-06-09] MEDS: Dexamethasone 10 MG/ML VIAL SLOW IVP SCH (08:36)
[2021-06-09] MEDS: Lantus 1000 UNITS/10 ML VIAL SC SCH ×2 (08:36→20:34)
[2021-06-09] MEDS: Atorvastatin Calcium 40 MG TAB PO SCH (20:27)
[2021-06-09] MEDS: Cholecalciferol 1,000 UNITS (25 MCG) TAB PO SCH (20:28)
[2021-06-09] MEDS: Lisinopril 20 MG TAB PO SCH (20:30)
[2021-06-09] MEDS: guaiFENesin ER 600 MG TAB PO SCH (20:30)
[2021-06-10] MEDS: HumaLOG 300 UNITS/3 ML VIAL SC SCH ×3 (08:13→16:42)
[2021-06-10] MEDS: Lantus 1000 UNITS/10 ML VIAL SC SCH ×2 (08:15→20:53)
[2021-06-10] MEDS: Benzonatate 100 MG CAP PO SCH ×3 (08:16→20:47)
[2021-06-10] MEDS: Gabapentin 300 MG CAP PO SCH ×3 (08:17→20:50)
[2021-06-10] MEDS: Ascorbic Acid 500 mg Chewable Tablet PO SCH ×2 (08:17→20:46)
[2021-06-10] MEDS: Zinc Sulfate 220 MG CAP PO SCH (08:17)
[2021-06-10] MEDS: Enoxaparin Sodium 40 MG/0.4 ML SYRINGE SC SCH (08:18)
[2021-06-10] MEDS: Polyethylene Glycol 3350 17 GM Packet PO PRN (08:19)
[2021-06-10] MEDS: Dexamethasone 10 MG/ML VIAL SLOW IVP SCH (08:19)
[2021-06-10] MEDS: guaiFENesin ER 600 MG TAB PO SCH ×2 (08:27→20:49)
[2021-06-10] MEDS: HumaLOG 300 UNITS/3 ML VIAL SC PRN ×2 (12:18→16:43)
[2021-06-10] MEDS: Atorvastatin Calcium 40 MG TAB PO SCH (20:46)
[2021-06-10] MEDS: Cholecalciferol 1,000 UNITS (25 MCG) TAB PO SCH (20:47)
[2021-06-10] MEDS: Lisinopril 20 MG TAB PO SCH (20:49)
[2021-06-11] MEDS: Enoxaparin Sodium 40 MG/0.4 ML SYRINGE SC SCH (08:19)
[2021-06-11] MEDS: Dexamethasone 10 MG/ML VIAL SLOW IVP SCH (08:19)
[2021-06-11] MEDS: Zinc Sulfate 220 MG CAP PO SCH (08:20)
[2021-06-11] MEDS: Benzonatate 100 MG CAP PO SCH ×3 (08:20→21:41)
[2021-06-11] MEDS: Ascorbic Acid 500 mg Chewable Tablet PO SCH ×2 (08:20→21:40)
[2021-06-11] MEDS: guaiFENesin ER 600 MG TAB PO SCH ×2 (08:20→21:40)
[2021-06-11] MEDS: Gabapentin 300 MG CAP PO SCH ×3 (08:20→21:40)
[2021-06-11] MEDS: Lantus 1000 UNITS/10 ML VIAL SC SCH ×2 (08:21→21:56)
[2021-06-11] MEDS: HumaLOG 300 UNITS/3 ML VIAL SC SCH ×3 (08:21→16:25)
[2021-06-11] MEDS: Polyethylene Glycol 3350 17 GM Packet PO PRN (08:23)
[2021-06-11 10:29] LABS: #Eosinphils 0.1 thou/uL (0.0-0.7); #Lymphocytes 0.8 thou/uL (1.20-3.40); #Monocytes 0.4 thou/uL (0.11-0.59); #Neutrophils 11.3 thou/uL (1.40-6.50); %Eosinophils 0.5 % (0.0-10.0); %Lymphocytes 6.4 % (21.0-51.0); %Monocytes 2.9 % (0.0-10.0); %Neutrophils 90.3 % (42.0-75.0); Hemoglobin 10.5 g/dL (12.0-16.0); Mean Corpuscular HGB CONC 32.6 g/dL (32.0-36.0); Mean Corpuscular Hemoglobin 30.2 pg (27.0-31.0); Mean Corpuscular Volume 92.8 fL (78.0-98.0); Mean Platelet Volume 8.1 fL (7.4-10.4); Platelet Count 268 thou/uL (130-400); RBC Distribution Width 13.1 % (11.5-14.5); Red Blood Cell (RBC) Count 3.48 mill/uL (4.20-5.40); White Blood Cell (WBC) Count 12.5 thou/uL (4.8-10.8)
[2021-06-11] MEDS ORDERED: Iopamidol-370 76% 500 ML 1 ML ONE (10:42)
[2021-06-11 10:47] LABS: ALT (SGPT) 46 U/L (8-55); AST (SGOT) 19 U/L (5-34); Alkaline Phosphatase 53 U/L (40-110); Anion Gap 17 mmol/L (10-20); BUN (Urea Nitrogen) 13 mg/dL (9.8-20.1); Bilirubin, Total 0.5 mg/dL (0.2-1.2); Calc. Creatinine Clearance 128 mL/min (70-130); Calcium 8.7 mg/dL (7.8-10.44); Carbon Dioxide 19 mmol/L (22-29); Chloride 102 mmol/L (98-107); Globulin 2.8 g/dL (2.4-3.5); Glucose 274 mg/dL (70-105); Potassium 4.1 mmol/L (3.5-5.1); Protein, Total 5.8 g/dL (6.0-8.3); Sodium 134 mmol/L (136-145)
[2021-06-11] MEDS: HumaLOG 300 UNITS/3 ML VIAL SC PRN ×2 (13:00→16:24)
[2021-06-11] MEDS: Cholecalciferol 1,000 UNITS (25 MCG) TAB PO SCH (21:41)
[2021-06-11] MEDS: Atorvastatin Calcium 40 MG TAB PO SCH (21:41)
[2021-06-11] MEDS: Lisinopril 20 MG TAB PO SCH (21:42)
[2021-06-11] MEDS: Polyethylene Glycol 3350 17 GM Packet PO SCH (21:43)
[2021-06-12] MEDS: HumaLOG 300 UNITS/3 ML VIAL SC PRN ×2 (06:03→13:14)
[2021-06-12] MEDS: guaiFENesin ER 600 MG TAB PO SCH ×2 (08:25→20:55)
[2021-06-12] MEDS: Polyethylene Glycol 3350 17 GM Packet PO SCH ×2 (08:25→20:57)
[2021-06-12] MEDS: Ascorbic Acid 500 mg Chewable Tablet PO SCH ×2 (08:25→20:55)
[2021-06-12] MEDS: Benzonatate 100 MG CAP PO SCH ×3 (08:25→20:55)
[2021-06-12] MEDS: Zinc Sulfate 220 MG CAP PO SCH (08:25)
[2021-06-12] MEDS: Gabapentin 300 MG CAP PO SCH ×3 (08:26→20:57)
[2021-06-12] MEDS: Dexamethasone 10 MG/ML VIAL SLOW IVP SCH (08:27)
[2021-06-12] MEDS: HumaLOG 300 UNITS/3 ML VIAL SC SCH ×3 (08:27→17:42)
[2021-06-12] MEDS: Lantus 1000 UNITS/10 ML VIAL SC SCH ×2 (08:28→21:13)
[2021-06-12] MEDS: Enoxaparin Sodium 40 MG/0.4 ML SYRINGE SC SCH (08:28)
[2021-06-12] MEDS: Lisinopril 20 MG TAB PO SCH (20:56)
[2021-06-12] MEDS: Atorvastatin Calcium 40 MG TAB PO SCH (20:56)
[2021-06-12] MEDS: Cholecalciferol 1,000 UNITS (25 MCG) TAB PO SCH (20:57)
[2021-06-13] MEDS: HumaLOG 300 UNITS/3 ML VIAL SC PRN ×2 (05:40→16:34)
[2021-06-13] MEDS: HumaLOG 300 UNITS/3 ML VIAL SC SCH ×3 (08:24→16:34)
[2021-06-13] MEDS: Lantus 1000 UNITS/10 ML VIAL SC SCH ×2 (08:24→21:01)
[2021-06-13] MEDS: Gabapentin 300 MG CAP PO SCH ×3 (08:25→20:57)
[2021-06-13] MEDS: guaiFENesin ER 600 MG TAB PO SCH ×2 (08:25→20:58)
[2021-06-13] MEDS: Benzonatate 100 MG CAP PO SCH ×3 (08:25→20:58)
[2021-06-13] MEDS: Ascorbic Acid 500 mg Chewable Tablet PO SCH ×2 (08:25→20:57)
[2021-06-13] MEDS: Zinc Sulfate 220 MG CAP PO SCH (08:25)
[2021-06-13] MEDS: Enoxaparin Sodium 40 MG/0.4 ML SYRINGE SC SCH (08:25)
[2021-06-13] MEDS: Dexamethasone 10 MG/ML VIAL SLOW IVP SCH (08:26)
[2021-06-13] MEDS: Polyethylene Glycol 3350 17 GM Packet PO SCH ×2 (08:26→20:53)
[2021-06-13 12:32] VITALS: BMI 36.3
[2021-06-13] MEDS: Cholecalciferol 1,000 UNITS (25 MCG) TAB PO SCH (20:56)
[2021-06-13] MEDS: Atorvastatin Calcium 40 MG TAB PO SCH (20:58)
[2021-06-13] MEDS: Lisinopril 20 MG TAB PO SCH (20:58)
[2021-06-14] MEDS: HumaLOG 300 UNITS/3 ML VIAL SC PRN ×3 (05:45→16:55)
[2021-06-14] MEDS: Gabapentin 300 MG CAP PO SCH ×3 (08:36→20:45)
[2021-06-14] MEDS: Benzonatate 100 MG CAP PO SCH ×3 (08:37→20:46)
[2021-06-14] MEDS: guaiFENesin ER 600 MG TAB PO SCH ×2 (08:37→20:46)
[2021-06-14] MEDS: Zinc Sulfate 220 MG CAP PO SCH (08:37)
[2021-06-14] MEDS: Ascorbic Acid 500 mg Chewable Tablet PO SCH ×2 (08:37→20:44)
[2021-06-14] MEDS: Enoxaparin Sodium 40 MG/0.4 ML SYRINGE SC SCH (08:38)
[2021-06-14] MEDS: Polyethylene Glycol 3350 17 GM Packet PO SCH ×2 (08:38→20:49)
[2021-06-14] MEDS: HumaLOG 300 UNITS/3 ML VIAL SC SCH ×3 (08:50→16:54)
[2021-06-14] MEDS: Lantus 1000 UNITS/10 ML VIAL SC SCH ×2 (08:50→20:49)
[2021-06-14] MEDS ORDERED: Dexamethasone 4 MG TAB PO SCH (09:00)
[2021-06-14] MEDS: Atorvastatin Calcium 40 MG TAB PO SCH (20:46)
[2021-06-14] MEDS: Lisinopril 20 MG TAB PO SCH (20:47)
[2021-06-14] MEDS: Cholecalciferol 1,000 UNITS (25 MCG) TAB PO SCH (20:47)
[2021-06-15] MEDS: guaiFENesin ER 600 MG TAB PO SCH ×2 (08:00→20:30)
[2021-06-15] MEDS: Zinc Sulfate 220 MG CAP PO SCH (08:00)
[2021-06-15] MEDS: Dexamethasone 4 MG TAB PO SCH (08:01)
[2021-06-15] MEDS: Benzonatate 100 MG CAP PO SCH ×3 (08:01→20:28)
[2021-06-15] MEDS: Ascorbic Acid 500 mg Chewable Tablet PO SCH ×2 (08:02→20:27)
[2021-06-15] MEDS: Gabapentin 300 MG CAP PO SCH ×3 (08:03→20:29)
[2021-06-15] MEDS: Enoxaparin Sodium 40 MG/0.4 ML SYRINGE SC SCH (08:04)
[2021-06-15] MEDS: Polyethylene Glycol 3350 17 GM Packet PO SCH ×2 (08:06→20:32)
[2021-06-15] MEDS: HumaLOG 300 UNITS/3 ML VIAL SC SCH ×3 (08:13→17:01)
[2021-06-15] MEDS: Lantus 1000 UNITS/10 ML VIAL SC SCH ×2 (08:14→20:31)
[2021-06-15] MEDS: HumaLOG 300 UNITS/3 ML VIAL SC PRN (17:00)
[2021-06-15] MEDS: Atorvastatin Calcium 40 MG TAB PO SCH (20:28)
[2021-06-15] MEDS: Lisinopril 20 MG TAB PO SCH (20:29)
[2021-06-15] MEDS: Cholecalciferol 1,000 UNITS (25 MCG) TAB PO SCH (20:30)
[2021-06-16] MEDS: Lantus 1000 UNITS/10 ML VIAL SC SCH (08:30)
[2021-06-16] MEDS: Zinc Sulfate 220 MG CAP PO SCH (08:31)
[2021-06-16] MEDS: Benzonatate 100 MG CAP PO SCH ×2 (08:31→15:33)
[2021-06-16] MEDS: guaiFENesin ER 600 MG TAB PO SCH (08:31)
[2021-06-16] MEDS: HumaLOG 300 UNITS/3 ML VIAL SC SCH (08:32)
[2021-06-16] MEDS: Ascorbic Acid 500 mg Chewable Tablet PO SCH (08:32)
[2021-06-16] MEDS: Dexamethasone 4 MG TAB PO SCH (08:32)
[2021-06-16] MEDS: Enoxaparin Sodium 40 MG/0.4 ML SYRINGE SC SCH (08:33)
[2021-06-16] MEDS: Gabapentin 300 MG CAP PO SCH ×2 (08:33→15:33)
[2021-06-16] MEDS: Polyethylene Glycol 3350 17 GM Packet PO SCH (08:33)
[2021-06-16] MEDS ORDERED: metFORMIN XR 500 MG TAB PO SCH (12:30)
[2021-06-16 17:17] VITALS: BP 125/74; TEMP 98.9
[2021-06-16] MEDS: HumaLOG 300 UNITS/3 ML VIAL SC PRN (17:45)
[2021-06-18] MEDS ORDERED: Dexamethasone 4 MG TAB PO SCH (09:00)
== END 2021-06-16 19:56 | disposition home or self-care (01) | DRG 177 ==
LOC: ERS 23:30 → ERHOLD 05-25 00:22 → IMCU/EMU 05-25 17:51 → T4-B 06-05 18:30
PROVIDERS: ADMIT Student in an Organized Health Care Education/Training Program; ATTEND Student in an Organized Health Care Education/Training Program
PROC: 8E0ZXY6 Isolation (ICD-10-PCS; principal; 2021-05-25)
DX: U07.1 COVID-19 (principal); J12.82 Pneumonia due to coronavirus disease 2019; J96.01 Acute respiratory failure with hypoxia; N17.9 Acute kidney failure, unspecified; K21.9 Gastro-esophageal reflux disease without esophagitis; E10.40 Type 1 diabetes mellitus with diabetic neuropathy, unspecified; J45.909 Unspecified asthma, uncomplicated; E78.5 Hyperlipidemia, unspecified; N18.9 Chronic kidney disease, unspecified; I12.9 Hypertensive chronic kidney disease with stage 1 through stage 4 chronic kidney disease, or unspecified chronic kidney disease; E66.9 Obesity, unspecified; K59.00 Constipation, unspecified; T38.3X5A Adverse effect of insulin and oral hypoglycemic [antidiabetic] drugs, initial encounter; T38.0X5A Adverse effect of glucocorticoids and synthetic analogues, initial encounter; E10.65 Type 1 diabetes mellitus with hyperglycemia; E10.649 Type 1 diabetes mellitus with hypoglycemia without coma; E10.22 Type 1 diabetes mellitus with diabetic chronic kidney disease; Z90.710 Acquired absence of both cervix and uterus; Z79.82 Long term (current) use of aspirin; Z79.4 Long term (current) use of insulin; Z79.899 Other long term (current) drug therapy; Z68.36 Body mass index [BMI] 36.0-36.9, adult
CPT/HCPCS: 36415; 36416; 36600; 71045; 71275; 80048; 80053; 82570; 82805; 84145; 84300; 85025; 86140; J1100; J1650; J1815; J3490; J8540; Q9967

== ENCOUNTER 2021-11-23 09:00 | Outpatient (CLI) | payer OTHER | END 2021-11-23 09:01 | disposition home or self-care (01) | LOC: RAD 09:00 | PROVIDERS: ATTEND Internal Medicine Critical Care Medicine | DX: R06.00 Dyspnea, unspecified (principal); R91.8 Other nonspecific abnormal finding of lung field | CPT/HCPCS: 71046 ==

== ENCOUNTER 2022-06-30 10:31 | Outpatient (CLI) | payer OTHER | END 2022-06-30 10:32 | disposition home or self-care (01) | LOC: RAD 10:31 | PROVIDERS: ATTEND Internal Medicine Critical Care Medicine | DX: R06.00 Dyspnea, unspecified (principal) | CPT/HCPCS: 71046 ==